=== PATIENT | female | born 1995 | race Caucasian/White ===

== ENCOUNTER 2020-06-25 20:00 | Emergency (ER) | payer SELFPAY ==
[~2020-06-25] VITALS: Ht 162.6 cm; Wt 80.7 kg
[~2020-06-25 20:00] MED LIST: IBUP-2213 PO; SULF-979 PO
[2020-06-25 20:16] VITALS: BP 134/76
[2020-06-25] MEDS: PENICILLIN G BENZATHINE L-A 1.2 MU/2 ML SYR IM ONE (21:02)
[2020-06-25] MEDS: KETOROLAC 60 MG/2 ML VIAL IM ONE (21:02)
[2020-06-25] MEDS ORDERED: IBUP-2213 PO (21:24)
[2020-06-25] MEDS ORDERED: PRED20TA5 PO (21:24)
[2020-06-25 21:32] VITALS: BP 134/76
== END 2020-06-25 21:31 | disposition home or self-care (01) ==
LOC: MED 20:00
DX: J02.0 Streptococcal pharyngitis (principal); F12.10 Cannabis abuse, uncomplicated
CPT/HCPCS: 96372; 99284; J0561; J1885

== ENCOUNTER 2020-09-06 19:50 | Emergency (ER) | payer SELFPAY ==
[~2020-09-06] VITALS: Ht 162.6 cm; Wt 79.4 kg
[~2020-09-06 19:50] MED LIST changes: +PRED20TA5 PO; +SULF-954 PO; -SULF-979 PO
[2020-09-06 20:00] VITALS: BP 120/71
--- NOTE | 2020-09-06 20:00 | NUR ---
TO [facility]
[2020-09-06] MEDS ORDERED: DEXAMETHASONE 4 MG/ML VIAL PO ONE (20:45)
[2020-09-06] MEDS ORDERED: PENICILLIN G BENZATHINE C-R 1.2 MU/2 ML SYR IM ONE ×2 (20:45→22:10)
--- NOTE | 2020-09-06 20:45 | NUR ---
SEEN AND EXAMINED BY GENOVEVA , WITH ORDERS AND CARRIED OUT
[2020-09-06] MEDS ORDERED: IBUP-2213 PO (20:49)
--- NOTE | 2020-09-06 22:00 | NUR ---
MEDICATED PER ERMDS ORDER, TOLERTED WELL.
[2020-09-06] MEDS ORDERED: DEXAMETHASONE 4 MG TAB ONE (22:09)
[2020-09-06 22:34] VITALS: BP 118/81
== END 2020-09-06 22:34 | disposition home or self-care (01) ==
LOC: MED 19:50
DX: J02.8 Acute pharyngitis due to other specified organisms (principal); B96.89 Other specified bacterial agents as the cause of diseases classified elsewhere
CPT/HCPCS: 86308; 96372; 99283; J0558

== ENCOUNTER 2020-12-19 20:18 | Emergency (ER) | payer SELFPAY ==
[~2020-12-19] VITALS: Ht 162.6 cm; Wt 79.8 kg
[2020-12-19 20:31] VITALS: BP 112/71
--- NOTE | 2020-12-19 20:38 | NUR ---
PATIENT TO THE LOBBY
--- NOTE | 2020-12-19 22:00 | NUR ---
patient ambulated to bed 11
--- NOTE | 2020-12-19 22:37 | NUR ---
PT IS A 25 Y/O FEMALE BIB BY SELF FOR A LACERATION TO LABIA. PT STATES SHE WAS HAVING SEX 1 DAY AGO AND LACERATED HER LABIA. PT STATES SHE HAS BEEN BLEEDING A SMALL AMOUNT SINCE YESTERDAY. IT IS SENSITIVE TO TOUCH AND IS PAINFUL TO WEAR BOTTOMS. PAIN IS 7/10. PT HAS NPT TAKEN ANY MEDS OR TREATMENTS. PT LAST MENSTRUAL WAS 12/02. PT IS ALLERGIC TO [place]. PT DENIES N/V/F, DIRRHEA, HEADACHE, SOB.
--- NOTE | 2020-12-20 01:02 | NUR ---
Female Early Childhood Education Coordinator accompanied female patient for vaginal Exam.
[2020-12-20] MEDS ORDERED: LIDOCAINE MPF 1% 10 MG/ML VIAL INJ ONE ×3 (01:10→01:50)
--- NOTE | 2020-12-20 01:51 | NUR ---
Dr. Larios examining patient.
[2020-12-20] MEDS ORDERED: AMOX-999 PO (02:34)
[2020-12-20] MEDS ORDERED: IBUP-2218 PO (02:34)
--- NOTE | 2020-12-20 02:42 | NUR ---
Patient discharged with v/s stable. Written and verbal after care instructions given and explained. Patient alert, oriented and verbalized understanding of instructions. Ambulatory with steady gait. All questions addressed prior to discharge. ID band removed. Patient advised to follow up with PMD. Rx of AUGSTEVENIN AND IBRGENTRYROFEN given. OPPORTUNITY TO ASK QUESTIONS AND WERE ANSWERED
--- NOTE | 2020-12-20 02:44 | NUR ---
Chart checked and completed. The patient's care was reviewed and supervised by Stormy Wagner RN.
[2020-12-20 03:40] VITALS: BP 135/90
--- NOTE | 2020-12-20 03:43 | NUR ---
Note diana in EDM - 12/20/20 at 0344 by PURVI Patient discharged with v/s stable. Written and verbal after care instructions given and explained. Patient alert, oriented and verbalized understanding of instructions. Ambulatory with steady gait. All questions addressed prior to discharge. ID band removed. Patient advised to follow up with PMD. Rx of AUGMENTIN AND IBRUPROFEN given. Opportunity to ask questions provided and answered.
== END 2020-12-20 02:42 | disposition home or self-care (01) ==
LOC: MED 20:18
DX: S31.41XA Laceration without foreign body of vagina and vulva, initial encounter (principal); Z71.6 Tobacco abuse counseling; F17.200 Nicotine dependence, unspecified, uncomplicated; Z79.1 Long term (current) use of non-steroidal anti-inflammatories (NSAID); Z79.2 Long term (current) use of antibiotics; Z79.899 Other long term (current) drug therapy; X58.XXXA Exposure to other specified factors, initial encounter; Y92.89 Other specified places as the place of occurrence of the external cause; Y93.89 Activity, other specified; Y99.8 Other external cause status
CPT/HCPCS: 90471; 90715; 99283; J2001

== ENCOUNTER 2021-01-05 15:40 | Emergency (ER) | payer OTHER ==
[~2021-01-05] VITALS: Ht 162.6 cm; Wt 78.9 kg
[~2021-01-05 15:40] MED LIST changes: +AMOX-999 PO; +IBUP-2218 PO
[2021-01-05 15:59] VITALS: BP 142/83
[2021-01-05 18:46] VITALS: BP 142/83
--- NOTE | 2021-01-05 18:52 | NUR ---
Patient discharged with v/s stable. Written and verbal after care instructions given and explained. Patient verbalized understanding. Ambulatory with steady gait. All questions addressed prior to discharge. Advised to follow up with PMD.
[2021-01-06 17:43] LABS: HEPATITIS B SURFACE ANTIGEN NEGATIVE (NEGATIVE)
== END 2021-01-05 18:52 | disposition home or self-care (01) ==
LOC: MED 15:40
DX: S61.235A Puncture wound without foreign body of left ring finger without damage to nail, initial encounter (principal); W46.1XXA Contact with contaminated hypodermic needle, initial encounter; Y93.89 Activity, other specified; Y92.89 Other specified places as the place of occurrence of the external cause; Y99.8 Other external cause status
CPT/HCPCS: 36415; 86592; 86702; 86803; 87340; 99283